=== PATIENT | male | born 1975 | race Caucasian/White ===

== ENCOUNTER 2020-04-02 10:53 | Emergency (ER) | payer MEDICAID ==
[~2020-04-02] VITALS: Ht 165.1 cm; Wt 65.0 kg
[2020-04-02] MEDS ORDERED: prednisone 10mg tablet PO STA (11:34)
[2020-04-02] MEDS ORDERED: ondansetron 4mg rapidly disintigrating tab PO ONE (11:35)
[2020-04-02] MEDS ORDERED: diazepam 5mg tablet PO ONE (11:35)
[2020-04-02] MEDS ORDERED: predniSONE 20 mg tablet PO STA (11:42)
[2020-04-02] MEDS ORDERED: PRED20TA PO (12:09)
[2020-04-02] MEDS ORDERED: DIAZ5TAB PO ×2 (12:09→12:13)
[2020-04-02 12:36] VITALS: BP 113/76
== END 2020-04-02 12:39 | disposition home or self-care (01) ==
LOC: ER 10:53
DX: S39.012A Strain of muscle, fascia and tendon of lower back, initial encounter (principal); M54.42 Lumbago with sciatica, left side; G89.29 Other chronic pain; F12.10 Cannabis abuse, uncomplicated; Z79.899 Other long term (current) drug therapy; X58.XXXA Exposure to other specified factors, initial encounter; Y93.89 Activity, other specified; Y92.89 Other specified places as the place of occurrence of the external cause; Y99.8 Other external cause status
CPT/HCPCS: 93005; 99284; J7512